=== PATIENT | female | born 1985 | race African-American/Black ===

== ENCOUNTER 2017-07-03 11:19 | Emergency (ER) | payer SELFPAY ==
[~2017-07-03] VITALS: Ht 170.2 cm; Wt 67.0 kg
[2017-07-03 12:27] VITALS: BP 144/87
[2017-07-03] MEDS ORDERED: TETRACAINE 0.5% OPHTH DROPS 4ML BOTHEYE ONE (13:30)
[2017-07-03] MEDS ORDERED: FLUORESCEIN SODIUM 1MG/STRIP RIGHTEYE ONE (14:00)
== END 2017-07-03 14:10 | disposition home or self-care (01) ==
LOC: ER 12:51
DX: S05.01XA Injury of conjunctiva and corneal abrasion without foreign body, right eye, initial encounter (principal); H10.89 Other conjunctivitis; X58.XXXA Exposure to other specified factors, initial encounter; Y93.89 Activity, other specified; Y92.89 Other specified places as the place of occurrence of the external cause; F17.210 Nicotine dependence, cigarettes, uncomplicated
CPT/HCPCS: 99283